=== PATIENT | female | born 1985 | race Caucasian/White ===

== ENCOUNTER 2020-02-23 14:13 | Inpatient (IN) | payer BC ==
[~2020-02-23] VITALS: Ht 157.5 cm; Wt 62.6 kg
[2020-02-23 14:43] VITALS: Ht 157.5 cm; Wt 62.6 kg
[2020-02-23 15:45] LABS: BASOPHIL % 0.3 % (0-2); CALCIUM 9.3 mg/dL (8.5-10.1); CARBON DIOXIDE 27.3 mmol/L (21-32); CHLORIDE SERUM 98 mmol/L (98-107); CREATININE SERUM 0.7 mg/dL (0.6-1.0); GFR1 > 60 mL/min; GLUCOSE SERUM 92 mg/dL (74-106); PLATELET COUNT 319 x10^3mcL (130-400); POTASSIUM SERUM 4.7 mmol/L (3.5-5.1); RED CELL DISTRIBUTION WIDTH 13.7 % (11.5-14.5); SODIUM SERUM 132 mmol/L (136-145)
[2020-02-23 15:50] LABS: ALBUMIN 4.2 g/dL (3.4-5.0); ALKALINE PHOSPHATASE 374 U/L (46-116); ALT/SGPT 697 U/L (14-59); AST/SGOT 743 U/L (15-37); BILIRUBIN TOTAL 2.8 mg/dL (0.20-1.00); LIPASE 99 IU/L (73-393); TOTAL PROTEIN, SERUM 8.1 g/dL (6.4-8.2)
[2020-02-23 19:16] LABS: MAGNESIUM 2.3 mg/dL (1.8-2.4); PHOSPHOROUS 4.3 mg/dL (2.5-4.9)
[2020-02-23 19:17] LABS: CHOLESTEROL/HDL RATIO 3.7
[2020-02-23 20:45] VITALS: BP 97/73
[2020-02-24 05:30] VITALS: BP 103/54
[2020-02-24 07:05] LABS: BASOPHIL % 0.5 % (0-2); PLATELET COUNT 282 x10^3mcL (130-400); RED CELL DISTRIBUTION WIDTH 13.8 % (11.5-14.5)
[2020-02-24 07:21] LABS: ALBUMIN 3.7 g/dL (3.4-5.0); ALKALINE PHOSPHATASE 374 U/L (46-116); ALT/SGPT 648 U/L (14-59); AST/SGOT 521 U/L (15-37); BILIRUBIN TOTAL 3.3 mg/dL (0.20-1.00); CALCIUM 8.4 mg/dL (8.5-10.1); CHLORIDE SERUM 103 mmol/L (98-107); CREATININE SERUM 0.7 mg/dL (0.6-1.0); GFR1 > 60 mL/min; GLUCOSE SERUM 75 mg/dL (74-106); MAGNESIUM 2.1 mg/dL (1.8-2.4); POTASSIUM SERUM 3.7 mmol/L (3.5-5.1); SODIUM SERUM 137 mmol/L (136-145); TOTAL PROTEIN, SERUM 7.3 g/dL (6.4-8.2)
[2020-02-24 08:32] VITALS: BP 94/56
[2020-02-24 11:44] VITALS: BP 94/50
[2020-02-24 17:12] VITALS: BP 123/73
[2020-02-24 20:12] LABS: microscopic required? NO
[2020-02-24 20:26] LABS: UA SPECIFIC GRAVITY >=1.030 (1.005-1.035); urine erythrocyte NEGATIVE (NEGATIVE)
[2020-02-24 20:37] LABS: AMPHETAMINE QUAL UR NONE DETECTED (See below)
[2020-02-24 21:16] VITALS: BP 94/60
[2020-02-25 03:41] VITALS: BP 98/58
[2020-02-25 07:02] LABS: BASOPHIL % 0.5 % (0-2); PLATELET COUNT 270 x10^3mcL (130-400); RED CELL DISTRIBUTION WIDTH 13.8 % (11.5-14.5)
[2020-02-25 07:45] LABS: ALKALINE PHOSPHATASE 341 U/L (46-116); ALT/SGPT 433 U/L (14-59); AST/SGOT 233 U/L (15-37); BILIRUBIN TOTAL 0.9 mg/dL (0.20-1.00); CALCIUM 8.4 mg/dL (8.5-10.1); CARBON DIOXIDE 27.9 mmol/L (21-32); CHLORIDE SERUM 103 mmol/L (98-107); CREATININE SERUM 0.7 mg/dL (0.6-1.0); GFR1 > 60 mL/min; GLUCOSE SERUM 93 mg/dL (74-106); MAGNESIUM 1.8 mg/dL (1.8-2.4); PHOSPHOROUS 3.6 mg/dL (2.5-4.9); POTASSIUM SERUM 4.3 mmol/L (3.5-5.1); SODIUM SERUM 137 mmol/L (136-145); TOTAL PROTEIN, SERUM 6.6 g/dL (6.4-8.2)
[2020-02-25 07:46] LABS: ALBUMIN 3.3 g/dL (3.4-5.0)
[2020-02-25 08:16] VITALS: BP 103/64
[2020-02-25 14:31] VITALS: BP 104/61
[2020-02-25 16:32] VITALS: BP 104/62
[2020-02-25 20:30] VITALS: BP 104/62
[2020-02-26 05:51] VITALS: BP 101/69
[2020-02-26 06:59] LABS: BASOPHIL % 0.2 % (0-2); PLATELET COUNT 276 x10^3mcL (130-400); RED CELL DISTRIBUTION WIDTH 13.8 % (11.5-14.5)
[2020-02-26 07:01] LABS: CALCIUM 8.6 mg/dL (8.5-10.1); CARBON DIOXIDE 28.4 mmol/L (21-32); CHLORIDE SERUM 102 mmol/L (98-107); CREATININE SERUM 0.7 mg/dL (0.6-1.0); GFR1 > 60 mL/min; GLUCOSE SERUM 95 mg/dL (74-106); MAGNESIUM 1.8 mg/dL (1.8-2.4); PHOSPHOROUS 4.7 mg/dL (2.5-4.9); POTASSIUM SERUM 4.2 mmol/L (3.5-5.1); SODIUM SERUM 136 mmol/L (136-145)
[2020-02-26 08:31] VITALS: BP 114/69
[2020-02-26] MEDS ORDERED: PROTONIX TR40 M1 PO (11:21)
[2020-02-26 11:31] VITALS: BP 114/69
[2020-02-26 12:27] VITALS: BP 100/67
== END 2020-02-26 13:17 | disposition home or self-care (01) | DRG 418 ==
LOC: ED 14:13 → MU 17:32
PROVIDERS: Emergency Medicine; Surgery; ADMIT Family Medicine; ATTEND Family Medicine
PROC: BF131ZZ Fluoroscopy of Gallbladder and Bile Ducts using Low Osmolar Contrast (ICD-10-PCS; 2020-02-25)
PROC: 0FT44ZZ Resection of Gallbladder, Percutaneous Endoscopic Approach (ICD-10-PCS; principal; 2020-02-25 12:45)
DX: K80.20 Calculus of gallbladder without cholecystitis without obstruction (principal); E87.1 Hypo-osmolality and hyponatremia; Z20.828 Contact with and (suspected) exposure to other viral communicable diseases; E83.51 Hypocalcemia; E78.5 Hyperlipidemia, unspecified; Z88.1 Allergy status to other antibiotic agents; Z79.899 Other long term (current) drug therapy
CPT/HCPCS: C1758; C9113; G0378; J0131; J0696; J1170; J1200; J1956; J2001; J2250; J2270; J2405; J3010; J3490; J7030; J7120; Q9967